=== PATIENT | female | born 1965 | race Caucasian/White ===

== ENCOUNTER → 2017-06-27 | Outpatient (CLI) | payer BC ==
--- NOTE | 2017-06-27 11:13 | RAD ---
EXAM: MAMMO [facility] DIAG BILAT, BREAST LEFT HISTORY: Left-sided nipple discharge. Strong family history of breast cancer. COMPARISON: Multiple prior exams including July 19, 2015 Standard mammographic views are obtained of the bilateral breasts. Additionally three-dimensional tomographic images obtained. This study was interpreted with the benefit of Computerized Aided Detection (CAD). FINDINGS: The breast parenchyma shows scattered fibroglandular densities. Breast parenchyma level B. Within the retroareolar region of the bilateral breasts there is some asymmetric breast tissue seen just inferior to the level of the nipple but the configuration is similar to prior examinations therefore this could be the patient's baseline glandular pattern. A definite new mass is not seen. Ultrasound was also performed through the left breast given the patient's symptoms. Focused ultrasound images were obtained of the left breast. At approximately the 6:00 position of the left breast there is a tubular structure identified which is mildly prominent which could be secondary to a duct within the region. There is some shadowing within this area seen on some of the images but difficult to visualize in other planes. No drainable fluid collection is seen. IMPRESSION: On focused ultrasound of the left breast at the 6:00 position there is a prominent duct seen with some possible shadowing within the region. It is possible that this shadowing is artifactual in nature since it is difficult to visualize in multiple planes but a real site of shadowing is not excluded on this examination. The presence of this finding was discussed with the patient and the option of obtaining a short interval follow-up examination or a breast MRI with and without contrast now to further evaluate the region of shadowing was explained and given the patient's strong family history of breast cancer and symptoms the patient prefers to obtain a breast MRI now to further evaluate. BI-RADS CATEGORY: 0 NEED ADD'L IMAGE/PRIOR MAMMO RECOMMENDED FOLLOW-UP: ADD ADDITIONAL IMAGING PQRS compliance statement: Patient information was entered into a reminder system with a target due date for the next mammogram. Mammography is a sensitive method for finding small breast cancers, but it does not detect them all and is not a substitute for careful clinical examination. A negative mammogram does not negate a clinically suspicious finding and should not result in delay in biopsying a clinically suspicious abnormality. "Our facility is accredited by the [employer] Mammography Program."
== END | disposition home or self-care (01) ==
LOC: US 08:38
PROVIDERS: ATTEND Obstetrics & Gynecology
DX: N64.52 Nipple discharge (principal); Z80.3 Family history of malignant neoplasm of breast
CPT/HCPCS: 76641; 77066; G0279; 77062

== ENCOUNTER 2021-04-26 18:54 | Emergency (ER) | payer BC ==
[~2021-04-26] VITALS: Ht 162.6 cm; Wt 89.0 kg
[2021-04-26] MEDS ORDERED: IOHEXOL 300 MG/ML 75 ML VIAL. IV ONE (20:00)
[2021-04-26] MEDS ORDERED: ONDANSETRON ODT 4 MG TAB.RAPDIS PO ONE (20:00)
[2021-04-26] MEDS ORDERED: KETOROLAC 15 MG/ML VIAL. IVP ONE (20:00)
[2021-04-26 20:31] LABS: CALCIUM 9.5 mg/dL (8.5-10.1); CREATININE 0.6 mg/dL (0.6-1.0); GFR 103.4; POTASSIUM 3.3 mmol/L (3.5-5.1)
[2021-04-26 20:36] LABS: ALBUMIN/GLOBULIN RATIO 1.1 (1.0-1.7); TOTAL BILIRUBIN 0.8 mg/dL (0.2-1.0); TOTAL PROTEIN 7.5 g/dL (6.4-8.2)
[2021-04-26 20:40] LABS: BASO % 0 % (0-3); EOS % 0 % (0-3); HEMATOCRIT 41.9 % (36.0-47.0); LYMPH # 1.6 x10^3/uL (1.0-4.8); LYMPH % 12 % (24-48); MEAN CORPUSCULAR HEMOGLOBIN 27 pg (25-35); MEAN CORPUSCULAR HGB CONC 34 g/dL (31-37); MEAN CORPUSCULAR VOLUME 82 fL (79-100); MONO # 0.7 x10^3/uL (0.0-1.1); MONO % 5 % (0-9); NEUT # 11.6 x10^3uL (1.8-7.7); NEUT % 83 % (31-73); PLATELET COUNT 290 x10^3/uL (140-400); RED BLOOD COUNT 5.11 x10^6/uL (3.50-5.40); RED CELL DISTRIBUTION WIDTH 15.2 % (11.5-14.5)
--- NOTE | 2021-04-26 20:52 | RAD ---
EXAMINATION: CT abdomen and pelvis with IV contrast. INDICATION:56 years, Female, history of diverticulitis, presented with abdominal pain. TECHNIQUE: Axial CT images of the abdomen and pelvis were obtained. Coronal and sagittal reformatted performed. COMPARISON: None. Exposure: One or more of the following individualized dose reduction techniques were utilized for thi s examination: 1. Automated exposure control 2. Adjustment of the mA and/or kV according to patient size 3. Use of iterative reconstruction technique. FINDINGS: LOWER CHEST: Unremarkable. ABDOMEN/PELVIS: Small hiatal hernia. No bowel obstruction. Normal appendix. Sigmoid diverticulosis. Mild wall thicken ing of the sigmoid colon with perisigmoid fat stranding. No extraluminal gas to suggest perforation. No abscess identified. Diffuse hepatic steatosis. No suspicious focal hepatic lesion. Subcentimeter hypodensity in the right hepatic lobe, too small to characterize. Gallbladder, spleen, pancreas, adrenal glands and kidneys a re unremarkable. Nonspecific bilateral perinephric fat stranding. Normal caliber abdominal aorta. Mesenteric arteries and portal vein are patent. No pneumoperitoneum o r ascites. No lymphadenopathy in the abdomen or pelvis by size criteria. Hysterectomy. No suspicious pelvic masses. Decompressed urinary bladder which limits evaluation. MUSCULOSKELETAL STRUCTURES: No acute osseous process or suspicious lesion. Grade 1 anterolisthesis of L4 over L5. Mild degenerati ve changes in the lumbar spine. Surgical clips in the left breast. IMPRESSION: 1. Findings suggesting of acute uncomplicated sigmoid diverticulitis. 2. Diffuse hepatic steatosis. Electronically signed by: Ab Arana MD (04/26/2021 8:50 PM) [facility]
[2021-04-26 21:01] LABS: BACTERIA,URINE FEW /HPF (0-FEW); BILIRUBIN,URINE NEG (NEG); CLARITY,URINE CLEAR; COLOR,URINE YELLOW; GLUCOSE,URINE NEG (NEG); NITRITE,URINE NEG (NEG); SQUAMOUS EPITHELIAL CELL,UR FEW /LPF; UROBILINOGEN,URINE 0.2 mg/dL (0.2 mg/dL)
--- NOTE | 2021-04-26 21:06 | PHYS DOC ---
Past History Additional Past Medical Histor: PCOS (INES BERRY) Past Surgical History: Cancer Surgery, Hysterectomy (INES BERRY) Alcohol Use: Heavy (INES BERRY) General Adult EDM: Chief Complaint: ABDOMINAL PAIN HPI: HPI: Patient is a 56 year old female who presents with diffuse abdominal pain since 0700. Patient rates her pain 7/10 and is worse with movement. Patient has not been nauseated throughout the day, but did experience some nausea on arrival to the emergency department. Patient reports to normal bowel movements this morning without straining. Patient has never had similar symptoms before. She denies fevers, night sweats, vomiting, diarrhea, constipation, dysuria, hematuria. (INES BERRY) Review of Systems: Review of Systems: Constitutional: See HPI Eyes: Denies change in visual acuity HENT: Denies nasal congestion or sore throat Respiratory: Denies cough or shortness of breath Cardiovascular: Denies chest pain or edema GI: See HPI : See HPI Musculoskeletal: Denies back pain or joint pain Integument: Denies rash or other skin lesions Neurologic: Denies headache, focal weakness or sensory changes (INES BERRY) Current Medications: Current Meds: Current Medications Medications (Trade) Dose Ordered Sig/Ragini Start Time Stop Time Status Last Admin Dose Admin Iohexol (Omnipaque 300 Mg/ml) 75 ml 1X ONCE 04/26/21 20:00 04/26/21 20:14 DC 04/26/21 20:21 75 ML Ketorolac Tromethamine (Toradol 15mg Vial) 15 mg 1X ONCE 04/26/21 20:00 04/26/21 20:14 DC 04/26/21 20:00 15 MG Lactated Ringer's 1,000 ml @ 1,000 mls/hr 1X ONCE 04/26/21 21:30 04/26/21 22:29 Ondansetron HCl (Zofran Odt) 4 mg 1X ONCE 04/26/21 20:00 04/26/21 20:14 DC 04/26/21 20:00 4 MG (INES BERRY) Allergies: Allergies: Allergies Coded Allergies Type Severity Reaction Last Updated Verified No Known Drug Allergies 04/26/21 No (INES BERRY) Physical Exam: PE: Constitutional: Well developed, well nourished, no acute distress, non-toxic appearance. Cardiovascular: Heart rate regular rhythm, no murmur. Lungs & Thorax: Bilateral breath sounds clear to auscultation. Abdomen: Bowel sounds normal, soft, lower abdominal extending to left-sided tenderness on palpation with voluntary guarding, no McBurney's point tenderness, negative Rovsing sign, no rebound tenderness, no masses, no pulsatile masses. Skin: Warm, dry, no erythema, no rash. Back: No step-offs, no tenderness, no CVA tenderness. Extremities: No tenderness, no cyanosis, no clubbing, ROM intact, no edema. Neurologic: Alert and oriented X 3, normal motor function, normal sensory function, no focal deficits noted. (INES BERRY) Current Patient Data: Labs: Laboratory Tests Test 04/26/21 20:09 Sodium Level 135 mmol/L (136-145) L Potassium Level 3.3 mmol/L (3.5-5.1) L Chloride Level 96 mmol/L (98-107) L Carbon Dioxide Level 31 mmol/L (21-32) Anion Gap 8 (6-14) Blood Urea Nitrogen 8 mg/dL (7-20) Creatinine 0.6 mg/dL (0.6-1.0) Estimated GFR (Cockcroft-Gault) 103.4 BUN/Creatinine Ratio 13 (6-20) Glucose Level 99 mg/dL (70-99) Calcium Level 9.5 mg/dL (8.5-10.1) Total Bilirubin 0.8 mg/dL (0.2-1.0) Aspartate Amino Transferase (AST) 21 U/L (15-37) Alanine Aminotransferase (ALT) 36 U/L (14-59) Alkaline Phosphatase 60 U/L (46-116) Total Protein 7.5 g/dL (6.4-8.2) Albumin 4.0 g/dL (3.4-5.0) Albumin/Globulin Ratio 1.1 (1.0-1.7) Lipase 84 U/L (73-393) Vital Signs: Vital Signs Date Time Temp Pulse Resp B/P (MAP) Pulse Ox O2 Delivery O2 Flow Rate FiO2 04/26/21 19:40 99.2 112 16 131/103 (112) 97 Room Air (INES BERRY) Radiology/Procedures: Radiology/Procedures: PROCEDURE: CT ABD PELV W/ IV CONTRST ONLY EXAMINATION: CT abdomen and pelvis with IV contrast. INDICATION:56 years, Female, history of diverticulitis, presented with abdominal pain. TECHNIQUE: Axial CT images of the abdomen and pelvis were obtained. Coronal and sagittal reformatted performed. COMPARISON: None. Exposure: One or more of the following individualized dose reduction techniques were utilized for this examination: 1. Automated exposure control 2. Adjustment of the mA and/or kV according to patient size 3. Use of iterative reconstruction technique. FINDINGS: LOWER CHEST: Unremarkable. ABDOMEN/PELVIS: Small hiatal hernia. No bowel obstruction. Normal appendix. Sigmoid diverticulosis. Mild wall thickening of the sigmoid colon with perisigmoid fat stranding. No extraluminal gas to suggest perforation. No abscess identified. Diffuse hepatic steatosis. No suspicious focal hepatic lesion. Subcentimeter hypodensity in the right hepatic lobe, too small to characterize. Gallbladder, spleen, pancreas, adrenal glands and kidneys are unremarkable. Nonspecific bilateral perinephric fat stranding. Normal caliber abdominal aorta. Mesenteric arteries and portal vein are patent. No pneumoperitoneum or ascites. No lymphadenopathy in the abdomen or pelvis by size criteria. Hysterectomy. No suspicious pelvic masses. Decompressed urinary bladder which limits evaluation. MUSCULOSKELETAL STRUCTURES: No acute osseous process or suspicious lesion. Grade 1 anterolisthesis of L4 over L5. Mild degenerative changes in the lumbar spine. Surgical clips in the left breast. IMPRESSION: 1. Findings suggesting of acute uncomplicated sigmoid diverticulitis. 2. Diffuse hepatic steatosis. Electronically signed by: Ab Arana MD (04/26/2021 8:50 PM) [facility]INES [facility]ERR[facility] Heart Score: C/O Chest Pain: No (INES BERRY) Course & Med Decision Making: Course & Med Decision Making Pertinent Labs and Imaging studies reviewed. (See chart for details) Patient symptoms could be early appendicitis or other colonic inflammation/infection. Work-up today will include blood work, urinalysis, CT abdomen pelvis with contrast. CT reveals diverticulitis. Patient made aware of findings. She states she knew she had diverticulosis, but has never had diverticulitis in the past. She will be treated with outpatient Augmentin. Patient understands and is agreeable to discharge plan. (INES BERRY) Dragon Disclaimer: Dragclifford Disclaimer: This electronic medical record was generated, in whole or in part, using a voice recognition dictation system. (INES BERRY) Attending Co-Sign The patient was seen and interviewed as well as examined at the bedside. The chart was reviewed. The case was discussed. Agree with the plan of care. (MARY RAMIREZ DO) Departure Departure: Impression: Primary Impression: Diverticulitis large intestine w/o perforation or abscess w/o bleeding Disposition: HOME / SELF CARE / HOMELESS Condition: STABLE Referrals: ANA BOUCHER (PCP) Patient Instructions: Diverticulitis, [id number] Additional Instructions: Imaging today revealed that you have diverticulosis. Additionally, some of your electrolytes were slightly below normal. Please take the full course of antibiotics that you are prescribed. If you have a fever at home, you may use [id number] acetaminophen or ibuprofen. Please return to the emergency department if your pain worsens or if you develop any new symptoms, including bloody stool. Scripts Amoxicillin/Potassium Clav (AUGMENTIN 875-125 TABLET) 1 Each Tablet 1 TAB PO BID for diverticulitis for 10 Days, #20 TAB 0 Refills Prov: INES BERRY 04/26/21 INES BERRY Apr 26, 2021 21:06 MARY RAMIREZ DO Apr 27, 2021 20:56
[2021-04-26 21:18] VITALS: BP 126/87
[2021-04-26 21:19] LABS: PLT ESTIMATE ADEQUATE (ADEQUATE)
[2021-04-26] MEDS ORDERED: IV RINGERS SOLUTION,LACTATED 1,000 ML IV ONE (21:30)
[2021-04-26] MEDS ORDERED: AMOX1TAB61 PO (21:47)
[2021-04-26] MEDS ORDERED: AMOXICILLIN/K CLAV 875/125MG TABLET. PO ONE (22:00)
== END 2021-04-26 22:08 | disposition home or self-care (01) ==
LOC: ER 18:54
DX: K57.32 Diverticulitis of large intestine without perforation or abscess without bleeding (principal); Z90.710 Acquired absence of both cervix and uterus
CPT/HCPCS: 36415; 74177; 80053; 81001; 83690; 83735; 85025; 87086; 96361; 96374; 99285; J1885; J7120; Q0162; Q9967